=== PATIENT | male | born 1950 | race Hispanic/Latino ===

== ENCOUNTER → 2018-11-19 | Outpatient (CLI) | payer MEDICARE, OTHER ==
[~2018-11-19] MED LIST: IOPAMIDOL 370 MG/ML 200 ML INFUS..BTL INJ ONE; SODIUM CHLORIDE 0.9% 100 ML 0 ML ONE; SODIUM CHLORIDE 0.9% 100 ML 100 ML ONE
[2018-11-19 12:26] LABS: BLOOD UREA NITROGEN 24 mg/dL (7-26); BUN/CREATININE RATIO 24 (6-25); EST GLOMERULAR FILTRATION RATE > 60 ML/MIN (60-)
--- NOTE | 2018-11-19 19:56 | Diagnostic Imaging Report ---
CTA NECK, CTA BRAIN HISTORY: Concussion, dizziness and giddiness COMPARISON: MRI of the brain 08/05/2012 TECHNIQUE: CTA of the head and neck was performed with intravenous iodine based contrast. Noncontrast head CT was also obtained. Coronal, sagittal, 3-D, and oblique maximum intensity projection reformations were created. One or more of the following dose reduction techniques were used: Automated exposure control, adjustment of the mA and/or kV according to patient size, and/or utilization of iterative reconstruction technique. DISCUSSION: HEAD CT: Scalp/Skull: Possible small right parietal scalp hematoma. No calvarial fracture. Brain sulci: Mildly prominent. Ventricles: Compensatory dilatation. Extra-axial spaces: Small left retrocerebellar arachnoid cyst has not significantly changed. No masses or fluid collections. Parenchyma: Focal encephalomalacia along the right intraparietal sulcus is likely from remote infarct. Moderate periventricular white matter hypodensities are likely chronic microvascular ischemic changes. Otherwise, no mass, hemorrhage, or large vascular territory acute infarct. Dural sinuses: No abnormal densities. Sellar/Suprasellar region: Intact. Skull base: Intact. Incidental findings: None. CERVICAL CTA: If present, any cervical carotid stenosis will be measured as a percentage relative to the [place] artery distal to the stenosis (NASCET). There are mild calcifications in the aortic arch. Right Carotid: Mild right carotid bulb calcified plaque without significant stenosis. The right internal carotid artery is tortuous with slight retropharyngeal course. Left Carotid: Patent, no abnormalities. The left external carotid artery is tortuous with slight retropharyngeal course. Right vertebral artery: Patent, no abnormalities. Left vertebral artery: Patent, no abnormalities. INTRACRANIAL CTA: Carotid arteries: Minimal left carotid siphon calcification without significant stenosis The intracranial internal carotid arteries are otherwise patent and without abnormality. No abnormalities in the A1 or M1 segments. Vertebrobasilar Circulation: Right vertebral artery: Patent, no abnormalities. Left vertebral artery: Patent, no abnormalities. Basilar artery: Patent, no abnormalities. Posterior cerebral arteries: Patent, no abnormalities. Normal Variants: ACom: Patent. PComs: Not visualized. Vertebral arteries: Co-dominant. The major dural venous sinuses are grossly patent. Additional findings: Cardiac device in the left chest wall is partially visualized. Median sternotomy/CABG changes are present. The heart is enlarged with coronary artery calcifications. There are mild to moderate degenerative changes throughout the spine. IMPRESSION: Head CT: 1. No acute intracranial abnormalities. 2. Mild generalized cerebral volume loss. Moderate supratentorial chronic microvascular ischemic change. 3. Old right parietal cortical infarct. 4. Small left retrocerebellar arachnoid cyst. CTA: 1. Mild right carotid bulb calcified plaque without significant stenosis. 2. Minimal left carotid siphon calcification without significant stenosis. 3. No other cervical or intracranial CTA abnormalities. Signed by: Dr. Eduardo Collado M.D. on 11/19/2018 7:53 PM
== END ==
LOC: CT 11:28
PROVIDERS: ATTEND Family Medicine
DX: S06.0X0A Concussion without loss of consciousness, initial encounter (principal)
CPT/HCPCS: 36415; 70496; 70498; 82565; 84520; Q9967

== ENCOUNTER 2021-07-24 11:10 | Emergency (ER) | payer BC, OTHER ==
[~2021-07-24] VITALS: Ht 177.8 cm; Wt 102.1 kg
[2021-07-24] MEDS ORDERED: TETANUS/DIPHTHERIA TOX ADULT 0.5 ML SYR IM ONE (11:30)
[2021-07-24 12:48] VITALS: BP 134/82
[2021-07-26] MEDS ORDERED: ASPIRIN81 MG PO (11:07)
[2021-07-26] MEDS ORDERED: LISINOPRIL10 MG PO (11:07)
[2021-07-26] MEDS ORDERED: GLIMEPIRIDE2 MG PO (11:07)
[2021-07-26] MEDS ORDERED: ATORVASTATIN CA20 MG PO (11:07)
[2021-07-26] MEDS ORDERED: METOPROLOL SUCC50 MG PO (11:07)
[2021-07-26] MEDS ORDERED: CLOPIDOGREL75 MG PO (11:07)
== END 2021-07-24 12:54 | disposition home or self-care (01) ==
LOC: ER 11:15
DX: S61.442A Puncture wound with foreign body of left hand, initial encounter (principal); W29.4XXA Contact with nail gun, initial encounter; Y93.H3 Activity, building and construction; Y92.89 Other specified places as the place of occurrence of the external cause; I10 Essential (primary) hypertension; E11.9 Type 2 diabetes mellitus without complications; E78.5 Hyperlipidemia, unspecified; I25.10 Atherosclerotic heart disease of native coronary artery without angina pectoris; Z95.1 Presence of aortocoronary bypass graft
CPT/HCPCS: 90471; 90714; 99283

== ENCOUNTER → 2021-07-27 | Day surgery (SDC) | payer BC, MEDICARE ==
[2021-07-26 12:41] LABS: BASOPHILS % 0.6 % (0.0-1.0); EOSINOPHILS # (AUTO) 0.1 (0.0-0.4); HEMATOCRIT 40.8 % (38.2-49.6); HEMOGLOBIN 13.1 g/dL (14.0-18.0); LYMPHOCYTES # (AUTO) 1.3 (1.0-3.2); LYMPHOCYTES % 18.5 % (18.0-39.1); MEAN CORPUSCULAR HEMOGLOBIN 26.9 pg (28-32); MEAN CORPUSCULAR HGB CONC 32.1 g/dL (31-35); MEAN CORPUSCULAR VOLUME 83.8 fL (81-99); MONOCYTES # (AUTO) 0.7 (0.2-0.8); MONOCYTES % 9.5 % (4.4-11.3); NEUTROPHILS # (AUTO) 4.9 (2.1-6.9); PLATELET COUNT 235 x10e3/uL (140-360); RED BLOOD COUNT 4.87 x10e6/uL (4.3-5.7); RED CELL DISTRIBUTION WIDTH 14.6 % (11.7-14.4)
[2021-07-26 12:59] LABS: ANION GAP 13.8 mmol/L (8-16); CALCIUM 9.5 mg/dL (8.4-10.2); CREATININE, SERUM 0.97 mg/dL (0.72-1.25); POTASSIUM 3.8 mmol/L (3.5-5.1)
[~2021-07-27] MED LIST changes: +ACETAMINOPHEN 1000 MG/100 ML 100 ML IV ONE; +ACETAMINOPHEN-1 EAC3 PO; +ASPIRIN81 MG PO; +ATORVASTATIN CA20 MG PO; +BUPIVACAINE HCL 0.5% INJ 30 ML VIAL INJ ONE; +CLOPIDOGREL75 MG PO; +DEXAMETHASONE SOD PHOS INJ 4 MG/ML SDV ONE; +EPHEDRINE SULFATE INJ 50 MG/ML VIAL ONE; +FENTANYL CITRATE/PF 100MCG/2 ML INJ ONE; +GLIMEPIRIDE2 MG PO; +GLYCOPYRROLATE INJ 0.2 MG/ML VIAL ONE; -IOPAMIDOL 370 MG/ML 200 ML INFUS..BTL INJ ONE; +LIDOCAINE HCL 2% LOCAL INJ 5 ML SDV VIAL INJ ONE; +LISINOPRIL10 MG PO; +METOPROLOL SUCC50 MG PO; +MIDAZOLAM HCL 2 MG/2 ML VIAL ONE; +MUPIROCIN 2% OINT 22 GM TUBE ONE; +ONDANSETRON HCL INJ 2MG/ML 2ML 2 MG/ML VIAL ONE; +POVIDONE IODINE 0.05% 0.05 % ML PO ONE; +PROPOFOL IV EMULSION 10 MG/ML 20 ML VIAL ONE; +SEVOFLURANE INHAL SOLN 250 ML PEN BTL ONE; -SODIUM CHLORIDE 0.9% 100 ML 0 ML ONE; -SODIUM CHLORIDE 0.9% 100 ML 100 ML ONE; +SODIUM CHLORIDE 0.9% 50ML 50 ML ONE
[2021-07-27 08:20] VITALS: BP 129/87
== END | disposition home or self-care (01) ==
LOC: OR 06:39
PROVIDERS: ATTEND Plastic Surgery
DX: S61.442A Puncture wound with foreign body of left hand, initial encounter (principal); W29.4XXA Contact with nail gun, initial encounter; E11.9 Type 2 diabetes mellitus without complications; I10 Essential (primary) hypertension; I25.810 Atherosclerosis of coronary artery bypass graft(s) without angina pectoris; I44.0 Atrioventricular block, first degree; I45.10 Unspecified right bundle-branch block; I49.1 Atrial premature depolarization; I25.2 Old myocardial infarction; E78.5 Hyperlipidemia, unspecified; Z01.812 Encounter for preprocedural laboratory examination; Z01.818 Encounter for other preprocedural examination; Z20.822 Contact with and (suspected) exposure to COVID-19; Z79.84 Long term (current) use of oral hypoglycemic drugs; Z79.82 Long term (current) use of aspirin; Z79.899 Other long term (current) drug therapy; Z95.810 Presence of automatic (implantable) cardiac defibrillator; Z95.1 Presence of aortocoronary bypass graft; Z95.5 Presence of coronary angioplasty implant and graft; Z87.891 Personal history of nicotine dependence
CPT/HCPCS: 20525; 36415 ×2; 71046; 80048; 82948; 85025; J0131; J0690; J1100; J2001; J2250; J2405; J2704; J3010; U0002